=== PATIENT | male | born 1960 | race African-American/Black ===

== ENCOUNTER 2023-10-02 14:03 | Emergency (ER) | payer OTHER ==
[~2023-10-02] VITALS: Ht 172.7 cm; Wt 75.0 kg
[2023-10-02 14:10] VITALS: BP 169/90; PULSE 90; RESP 14; TEMP 98; O2SAT 100
== END 2023-10-02 19:34 | disposition left against medical advice (07) ==
LOC: ER 14:35
DX: R19.09 Other intra-abdominal and pelvic swelling, mass and lump (principal)
CPT/HCPCS: 99283

== ENCOUNTER 2023-10-06 08:43 | Emergency (ER) | payer OTHER ==
[~2023-10-06] VITALS: Ht 170.2 cm; Wt 84.0 kg
[2023-10-06 08:58] VITALS: O2SAT 98
[2023-10-06] MEDS ORDERED: HYDR30CR80 TP (10:18)
[2023-10-06] MEDS: IVERMECTIN 3 MG TABLET PO ONE (12:31)
[2023-10-06 12:33] VITALS: BP 137/84; PULSE 80; RESP 18; TEMP 98.4
[2023-10-07] MEDS ORDERED: PHEN51CR24 TP (17:54)
== END 2023-10-06 12:34 | disposition home or self-care (01) ==
LOC: ER 08:43
DX: K64.4 Residual hemorrhoidal skin tags (principal); L29.0 Pruritus ani
CPT/HCPCS: 99283

== ENCOUNTER 2023-10-07 15:54 | Emergency (ER) | payer OTHER ==
[~2023-10-07] VITALS: Ht 172.7 cm; Wt 83.0 kg
[~2023-10-07 15:54] MED LIST: HYDR30CR80 TP
[2023-10-07 16:17] VITALS: BP 127/100; PULSE 90; RESP 20; TEMP 98.2; O2SAT 100
[2023-10-07] MEDS ORDERED: PHEN51CR24 TP (17:54)
== END 2023-10-07 18:12 ==
LOC: ER 16:01
DX: K64.9 Unspecified hemorrhoids (principal); Z98.890 Other specified postprocedural states; Z93.3 Colostomy status
CPT/HCPCS: 99282